=== PATIENT | female | born 2000 | race Caucasian/White ===

== ENCOUNTER 2019-04-03 14:56 | Emergency (ER) | payer OTHER ==
[~2019-04-03] VITALS: Ht 152.4 cm; Wt 103.9 kg
[2019-04-03 15:11] VITALS: BP 149/70
--- NOTE | 2019-04-03 15:16 | NUR ---
PT AMBULATED TO BED 2.
--- NOTE | 2019-04-03 15:16 | NUR ---
pt arrvied to ed c/o vag bleeding x 2 weeks. she said it happen when she started on control 3 weeks ago. pt also states heavy bleeding x 2 tampons a day. vss. no fever,v,d. pt states naseua. no distress noted. vss. nka. no pmh.
[2019-04-03 15:48] VITALS: BP 149/70
--- NOTE | 2019-04-03 15:48 | NUR ---
Patient discharged with v/s stable. Written and verbal after care instructions given and explained. Patient verbalized understanding. Ambulatory with steady gait. All questions addressed prior to discharge. Advised to follow up with PMD.
== END 2019-04-03 15:48 | disposition home or self-care (01) ==
LOC: MED 14:56
DX: N92.1 Excessive and frequent menstruation with irregular cycle (principal)
CPT/HCPCS: 81002; 81025; 99282

== ENCOUNTER 2019-04-07 10:30 | Emergency (ER) | payer OTHER ==
[~2019-04-07] VITALS: Ht 157.5 cm; Wt 103.9 kg
[2019-04-07 10:39] VITALS: BP 141/87
--- NOTE | 2019-04-07 10:47 | NUR ---
Christie denny in ED - 04/07/19 at 1047 by [facility] PT TAKEN TO BED 1.
--- NOTE | 2019-04-07 10:47 | NUR ---
PT TAKEN TO BED 5.
--- NOTE | 2019-04-07 10:57 | NUR ---
18/F BIB FAMILY C/O VAGINAL BLEEDING WITH HEAVY BLOOD CLOTS AND PELVIC PAIN X 15 DAYS STARTED BLISOVI X 3 WEEKS AGO. SEEN HERE ON TUESDAY FOR S/S, WAS DISCHARGED HOME WITH DIAGNOSIS OF METRORRHAGIA AND TOLD TO FOLLOW UP WITH PCP. PATIENT STATES PAIN OF /10 AT THIS TIME. PATIENT POSITIONED FOR COMFORT; HOB ELEVATED; BEDRAILS UP X1; BED DOWN. ER MD MADE AWARE OF PT STATUS.
--- NOTE | 2019-04-07 11:19 | NUR ---
Patient being evaluated by DR COSME at bedside.
--- NOTE | 2019-04-07 11:50 | NUR ---
Ultrasound at bedside.
[2019-04-07 11:55] LABS: BASOPHILS % (AUTO) 0.6 % (0.0-2.0); EOSINOPHILS # (AUTO) 0.1 K/uL (0-0.4); HEMATOCRIT 36.8 % (36-48); HEMOGLOBIN 12.2 g/dL (12.0-16.0); MEAN CORPUSCULAR HEMOGLOBIN 30 pg (27-31); MEAN CORPUSCULAR HGB CONC 33 g/dL (33-37); MEAN CORPUSCULAR VOLUME 89.3 fL (80-94); MONOCYTES # (AUTO) 0.4 K/uL (0.8-1.0); MONOCYTES % (AUTO) 6.6 % (1.7-9.3); NEUTROPHILS # (AUTO) 4.2 K/uL (1.8-7.7); NEUTROPHILS % (AUTO) 61.8 % (42.2-75.2); PLATELET COUNT (AUTO) 350 K/uL (140-450); RED BLOOD CELL COUNT(AUTO) 4.12 MIL/uL (4.20-5.40); RED CELL DISTRIBUTION WIDTH 12.9 % (11.6-13.7); WHITE BLOOD COUNT (AUTO) 6.8 K/uL (4.5-11.0)
[2019-04-07 11:56] LABS: APPEARANCE,URINE CLEAR (CLEAR); BILIRUBIN,URINE NEGATIVE (NEGATIVE); BLOOD, URINE TRACE-I (NEGATIVE); COLOR,URINE YELLOW (YELLOW); LEUKOCYTE ESTERASE ,URINE NEGATIVE (NEGATIVE); NITRITE, URINE NEGATIVE (NEGATIVE); PH,URINE 6.5 (5.0-9.0); UGLUCOSE NEGATIVE (NEGATIVE)
[2019-04-07 12:04] LABS: RBC,URINE 0-5 /HPF (0-5); WBC,URINE NONE SEEN /HPF (0-5)
[2019-04-07 12:24] LABS: PROTHROMBIN TIME 9.1 secs (10.8-13.4)
[2019-04-07 13:27] VITALS: BP 113/58
--- NOTE | 2019-04-07 13:27 | NUR ---
Patient discharged with v/s stable. Written and verbal after care instructions given and explained. Patient alert, oriented and verbalized understanding of instructions. Ambulatory with steady gait. All questions addressed prior to discharge. ID band removed. Patient advised to follow up with PMD. Rx of ULTRAM given. Patient educated on indication of medication including possible reaction and side effects. Opportunity to ask questions provided and answered.
== END 2019-04-07 13:27 | disposition home or self-care (01) ==
LOC: MED 10:30
DX: N93.8 Other specified abnormal uterine and vaginal bleeding (principal)
CPT/HCPCS: 36415; 76830; 81001; 81025; 85025; 85610; 85730; 99284; Q0092